=== PATIENT | male | born 1970 | race Caucasian/White ===

== ENCOUNTER → 2017-09-12 | Outpatient (REF) | payer BC ==
[~2017-09-12] MED LIST: /MOXI40TA OR; ATRO0.06 INH; No Historical Meds; PRED10TA2 OR; VENTAER IN; mucinex PO
[2017-09-12 17:42] LABS: BASO % 0.4 % (0.0-1.0); EOS # 0.2 10^3/uL (0.0-0.50); EOS % 3.4 % (0.0-3.0); IMMATURE GRANULOCYTE % 0.3 % (0-0); LYMPH # 2.6 10^3/uL (1.5-4.5); MEAN CORPUSCULAR HEMOGLOBIN 30.5 pg (27.0-33.0); MEAN CORPUSCULAR HGB CONC 33.5 g/dl (32.0-36.5); MEAN CORPUSCULAR VOLUME 90.9 fl (80.0-96.0); MONO # 0.4 10^3/uL (0.0-0.8); MONO % 6.2 % (0.0-5.0); NEUTROPHILS # 3.8 10^3/uL (1.8-7.7); NEUTROPHILS % 52.7 % (36.0-66.0); PLATELET COUNT, AUTOMATED 253 10^3/uL (150-450); WHITE BLOOD COUNT 7.1 10^3/uL (4.0-10.0)
[2017-09-12 19:02] LABS: ERYTHROCYTE SEDIMENTATION RATE 12 mm/hr (0-15)
[2017-09-12 19:13] LABS: FOLATE 12.3 NG/ML (>5.4); VITAMIN B12 LEVEL 524 PG/ML (247-911)
[2017-09-12 19:33] LABS: ALBUMIN 3.6 GM/DL (3.2-5.2); ALKALINE PHOSPHATASE 67 U/L (45-117); ALT/SGPT 32 U/L (12-78); ANION GAP 8 MEQ/L (8-16); AST/SGOT 19 U/L (15-37); BILIRUBIN,TOTAL 0.7 MG/DL (0.2-1.0); BLOOD UREA NITROGEN 13 MG/DL (7-18); CALCIUM LEVEL 9.2 MG/DL (8.5-10.1); CARBON DIOXIDE LEVEL 28 MEQ/L (21-32); CHLORIDE LEVEL 104 MEQ/L (98-107); CREATININE FOR GFR 0.94 MG/DL (0.70-1.30); GLOMERULAR FILTRATION RATE > 60.0 (>60); GLUCOSE, FASTING 90 MG/DL (70-105); POTASSIUM SERUM 3.9 MEQ/L (3.5-5.1); SODIUM LEVEL 140 MEQ/L (136-145); TOTAL PROTEIN 6.6 GM/DL (6.4-8.2)
[2017-09-14 11:08] LABS: ALBUMIN % 59.1 % (55.8-66.1); GAMMA GLOBULIN % 10.1 % (11.1-18.8)
[2017-09-18 08:06] LABS: Lyme Disease IgG/IgM Antibodie <0.91 ISR (0.00-0.90); Lyme Disease IgM Ab Quantitati <0.80 index (0.00-0.79); SJOGREN'S ANTI SS-A <0.2 AI (0.0-0.9); SJOGREN'S ANTI SS-B <0.2 AI (0.0-0.9); VITAMIN E LEVEL 13.5 mg/L (5.3-17.5)
== END ==
LOC: M LABNEURO 14:17
PROVIDERS: ATTEND Psychiatry & Neurology Neurology
DX: R25.1 Tremor, unspecified (principal)

== ENCOUNTER → 2018-08-29 | Outpatient (REF) | payer BC ==
[2018-08-29 14:41] LABS: COMPLEMENT C3 120 MG/DL (90-180)
[2018-08-29 14:51] LABS: PROTHROMBIN TIME 13.3 SECONDS (12.1-14.4)
[2018-08-29 14:54] LABS: TOTAL PROTEIN,RANDOM URINE 649.9 MG/DL (0.0-12.0); URINE TOTAL PROTEIN 649.9 MG/DL (0-12)
[2018-08-29 15:03] LABS: HEPATITIS B SURFACE ANTIGEN NEGATIVE (NEGATIVE)
[2018-08-29 15:31] LABS: HEPATITIS C VIRUS ABY INDEX 0.1 INDEX (<0.8)
[2018-08-29 15:32] LABS: HIV 1&2 SCREEN CENTAUR NEGATIVE (NEGATIVE)
[2018-08-31 08:34] LABS: UPEP INTERPRETATION NO M-SPIKE NOTED; URINE VOLUME RANDOM ML
[2018-09-04 00:07] LABS: ANCA-ATYPICAL <1:20 titer (Neg:<1:20); ANTI DOUBLE STRAND-DNA AB 1 IU/mL (0-9); ANTI-GLOMERULAR BASEMENT MEMB 2 units (0-20); ANTINUCLEAR ANTIBODIES DIRECT Negative (Negative); CYTOPLASMIC NEUTROP AB ANCA-C <1:20 titer (Neg:<1:20); PERINUCLEAR AB ANCA-P <1:20 titer (Neg:<1:20)
== END ==
LOC: M LAB REF 13:36
DX: N04.9 Nephrotic syndrome with unspecified morphologic changes (principal); R31.9 Hematuria, unspecified

== ENCOUNTER → 2018-09-03 | Outpatient (CLI) | payer BC ==
[~2018-09-03] MED LIST changes: -/MOXI40TA OR; -ATRO0.06 INH; +LIDOCAINE 1% MDV 20ML VIAL As Ordered; -No Historical Meds; -PRED10TA2 OR; -VENTAER IN; -mucinex PO
== END ==
LOC: M RADPRO 11:20
DX: N28.89 Other specified disorders of kidney and ureter (principal); N04.9 Nephrotic syndrome with unspecified morphologic changes; R31.9 Hematuria, unspecified; E78.5 Hyperlipidemia, unspecified; E04.9 Nontoxic goiter, unspecified; Z79.899 Other long term (current) drug therapy; Z86.69 Personal history of other diseases of the nervous system and sense organs
CPT/HCPCS: 50200

== ENCOUNTER → 2018-10-01 | Outpatient (REF) | payer BC ==
[2018-10-01 18:07] LABS: TOTAL PROTEIN,RANDOM URINE 1990.1 MG/DL (0.0-12.0)
== END ==
LOC: M LAB REF 17:06
DX: N04.9 Nephrotic syndrome with unspecified morphologic changes (principal)
CPT/HCPCS: 84156

== ENCOUNTER → 2018-11-16 | Outpatient (REF) | payer BC ==
[~2018-11-16] MED LIST changes: +/MOXI40TA OR; +ATRO0.06 INH; -LIDOCAINE 1% MDV 20ML VIAL As Ordered; +No Historical Meds; +PRED10TA2 OR; +VENTAER IN; +mucinex PO
== END ==
LOC: M LAB REF 12:54
PROVIDERS: ATTEND Internal Medicine Nephrology
DX: N04.9 Nephrotic syndrome with unspecified morphologic changes (principal)

== ENCOUNTER → 2018-11-30 | Outpatient (REF) | payer BC ==
[2018-11-30 18:31] LABS: CHOLESTEROL RISK RATIO 3.066 (<5)
== END ==
LOC: M LAB REF 17:00
PROVIDERS: ATTEND Internal Medicine Nephrology
DX: N04.9 Nephrotic syndrome with unspecified morphologic changes (principal); E78.00 Pure hypercholesterolemia, unspecified